=== PATIENT | female | born 1950 | race Caucasian/White ===

== ENCOUNTER 2018-07-23 11:48 | Emergency (ER) | payer MEDICARE, OTHER ==
[2018-07-23 12:51] LABS: Urine Appearance Clear; Urine Bacteria Absent (Absent); Urine Bilirubin Negative (Negative); Urine Blood 1+ (Negative); Urine Color Yellow; Urine Glucose Negative (Negative); Urine Ketones Trace (Negative); Urine Nitrite Negative (Negative); Urine Protein Negative (Negative); Urine Red Blood Cell Trace(0-2/hpf) (Absent); Urine Squamous Epithelial Cell Present (Absent); Urine Urobilinogen Negative (Negative); Urine White Blood Cell Trace(0-5/hpf) (Absent)
--- NOTE | 2018-07-23 13:57 | ED ---
Back Pain - HPI Summary HPI Summary: A 67 y/o F presents to ED with c/o constant, pin point, lower back pain onset yesterday AM and worsening. The pain is described as an ache and rated 8 out of 10 at bedside. She has not had this sort of pain before. Alleviating factors: heat mildly relieves the pain. Associated sx: nausea / vomiting. No changes in urinary or bowel sx. She ate breakfast yesterday and was at baseline. She had lunch yesterday, but vomited shortly thereafter. PMHx: diverticulitis. - History of Current Complaint Chief Complaint: EDFlankPain Stated Complaint: BACK IMAGING PER PT Time Seen by Provider: 07/23/18 13:49 Hx Obtained From: Patient Onset/Duration: Gradual Onset, Lasting Days - yesterday, Still Present Onset/Duration: Started Days Ago, Atraumatic, Still Present Timing: Constant Back Pain Location: Is Discrete @ - back Severity Currently: Severe Pain Intensity: 8 - at bedside Pain Scale Used: 0-10 Numeric Character: Aching Alleviating Symptom(s): Heat Associated Signs And Symptoms: Positive: Other - pos: n/v. Negative: Bladder Incontinence, Bowel Incontinence - Allergies/Home Medications Allergies/Adverse Reactions: Allergies Allergy/AdvReac Type Severity Reaction Status Date / Time No Known Allergies Allergy Verified 07/23/18 12:04 Home Medications: Home Medications Aspirin [Aspirin EC] 81 mg PO DAILY 07/23/18 [History Confirmed 07/23/18] Lisinopril [Lisinopril 2.5 MG-] 2.5 mg PO DAILY 07/23/18 [History Confirmed 06/11] Metformin HCl 500 mg PO BID 07/23/18 [History Confirmed 07/23/18] Probiotic Acidophilus 1 tab PO DAILY 07/23/18 [History Confirmed 07/23/18] PMH/Surg Hx/FS Hx/Imm Hx Previously Healthy: Yes GI History: Reports: Hx Diverticulosis History: Denies: Hx Kidney Stones Infectious Disease History: No Infectious Disease History: Denies: Traveled Outside the [place] in Last 30 Days - Social History Occupation: Unemployed - OTHER Lives: With Family Review of Systems Positive: Vomiting, Nausea. Negative: Other - neg: bowel changes Negative: dysuria, hematuria, incontinence Musculoskeletal: Other - pos: back pain All Other Systems Reviewed And Are Negative: Yes Physical Exam - Summary Physical Exam Summary: Appearance: The patient is well-nourished in no acute distress and in no acute pain. Skin: The skin is warm and dry and skin color reflects adequate perfusion. HEENT: The head is normocephalic and atraumatic. The pupils are equal and reactive. The conjunctivae are clear and without drainage. Nares are patent and without drainage. Mouth reveals moist mucous membranes and the throat is without erythema and exudate. The external ears are intact. The ear canals are patent and without drainage. The tympanic membranes are intact. Neck: the neck is supple with full range of motion and non-tender. There are no carotid bruits. There is no neck vein distension. Respiratory: Chest is non-tender. Lungs are clear to auscultation and breath sounds are symmetrical and equal. Cardiovascular: Heart is regular rate and rhythm. There is no murmur or rub auscultated. There is no peripheral edema and pulses are symmetrical and equal. Abdomen: The abdomen is soft and non-tender. There are normal bowel sounds heard in all four quadrants and there is no organomegaly palpated. Musculoskeletal: There is no back tenderness noted. Extremities are non-tender with full range of motion. There is good capillary refill. There is no peripheral edema or calf tenderness elicited. Neurological: Patient is alert and oriented to person, place and time. The patient has symmetrical motor strength in all four extremities. Cranial nerves are grossly intact. Deep tendon reflexes are symmetrical and equal in all four extremities. Psychiatric: The patient has an appropriate affect and does not exhibit any anxiety or depression. Triage Information Reviewed: Yes Vital Signs On Initial Exam: Initial Vitals Temp Pulse Resp BP Pulse Ox 99.4 F 73 20 147/74 99 07/23/18 12:03 07/23/18 12:03 07/23/18 12:03 07/23/18 12:03 07/23/18 12:03 Vital Signs Reviewed: Yes Diagnostics - Vital Signs Vital Signs Temp Pulse Resp BP Pulse Ox 07/23/18 12:03 99.4 F 73 20 147/74 99 - Laboratory Lab Results: Lab Results 07/23/18 Range/Units 12:10 Urine Color Yellow Urine Appearance Clear Urine pH 6.0 (5-9) Ur Specific [place] 1.020 (1.010-1.030) Urine Protein Negative (Negative) Urine Ketones Trace A (Negative) Urine Blood 1+ A (Negative) Urine Nitrate Negative (Negative) Urine Bilirubin Negative (Negative) Urine Urobilinogen Negative (Negative) Ur Leukocyte Esterase Trace A (Negative) Urine WBC (Auto) Trace(0-5/hpf) (Absent) Urine RBC (Auto) Trace(0-2/hpf) (Absent) Ur Squamous Epith Cells Present A (Absent) Urine Bacteria Absent (Absent) Urine Glucose Negative (Negative) Result Diagrams: 07/23/18 14:11 07/23/18 14:11 Lab Statement: Any lab studies that have been ordered have been reviewed, and results considered in the medical decision making process. - CT A/P CT Interpretation Completed By: Radiologist Summary of CT Findings: IMPRESSION: Hepatic steatosis. No evidence of cholelithiasis. No obstructive uropathy is noted. ED provider has reviewed this report. Re-Evaluation - Re-Evaluation 1 Re-Evaluation Time: 16:13 Change: Unchanged Comment: Discussing results and plan for DC. Pt is agreeable to DC. Back Pain Course/Dx - Course Course Of Treatment: Ms. Aragon presented complaining of right low back pain which started yesterday. She is essentially unable to reproduce pain. Her gave her a massage yesterday of the area and said the muscles were tense and it helped some but he was unable to relieve it. She denies any change in bowels or bladder. She was nauseated a little bit with it yesterday and vomited once. She was nontoxic in appearance with stable vitals and her exam was unremarkable. I was unable to reproduce the pain with palpation of her back. She had no CVA tenderness or abdominal tenderness. CBC, CMP and urinalysis were all unremarkable as was CT scan of her abdomen and pelvis. I'm not sure the etiology for the pain is but I suspect it is from her back and musculoskeletal. I recommended conservative treatment for couple of days and follow-up if she is not improving or return if she is worsening or develops new symptoms. - Diagnoses Provider Diagnoses: Right flank pain Discharge - Sign-Out/Discharge Documenting (check all that apply): Patient Departure - DC Patient Received Moderate/Deep Sedation with Procedure: No - Discharge Plan Condition: Stable Disposition: HOME Patient Education Materials: Flank Pain (ED) Referrals: Celio GRIFFIN,Aaron Lopez [Primary Care Provider] - 3 Days Additional Instructions: Try Ibuprofen as needed for pain. Please return to the ED if you experience new or worsening symptoms. Follow up with your primary care provider in 2-3 days. - Billing Disposition and Condition Condition: STABLE Disposition: Home - Attestation Statements Document Initiated by Bridgett: Yes Documenting Scribe: Natalie Do Provider For Whom Bridgett is Documenting (Include Credential): Dr. Ck Araujo MD Scribe Attestation: INatalie, scribed for Dr. Ck Araujo MD on 07/23/18 at 1717. Scribe Documentation Reviewed: Yes Provider Attestation: The documentation as recorded by the Natalie viramontes accurately reflects the service I personally performed and the decisions made by me, Dr. Ck Araujo MD Status of Scribe Document: Viewed
[2018-07-23 14:33] LABS: ABS Basophils 0 10^3/ul (0-0.2); ABS Eosinophils 0.1 10^3/ul (0-0.6); ABS Lymphocytes 1.9 10^3/ul (1.0-4.8); ABS Monocytes 0.5 10^3/ul (0-0.8); ABS Neutrophils 3.3 10^3/ul (1.5-7.7); ABS Nucleated RBC 0 10^3/ul; Eosinophil % 1.1 %; Hematocrit 42 % (33-41); Hemoglobin 14.1 g/dL (12.0-16.0); Lymphocyte % 32.8 %; Mean Corpuscular HGB Conc 34 g/dL (31-36); Mean Corpuscular Hemoglobin 30 pg (27-31); Mean Corpuscular Volume 88 fL (80-97); Nucleated Red Blood Cells % 0.1; Platelet Count 249 10^3/uL (150-450); Red Blood Count 4.76 10^6 /uL (3.70-4.87); Red Cell Distribution Width 14 % (10.5-15); White Blood Count 5.8 10^3/uL (3.5-10.8)
[2018-07-23 15:04] LABS: Albumin 4.4 g/dL (3.2-5.2); Albumin/Globulin Ratio 1.7 (1-3); BUN/Creatinine Ratio 20.2 (8-20); C Reactive Protein 4.59 mg/L (<8.01); Calcium 9.7 mg/dL (8.6-10.3); EGFR African American 76.3 (>60); EGFR Non-African American 63.1 (>60); Globulin 2.6 g/dL (2-4); Potassium 4.2 mmol/L (3.5-5.0); Total Bilirubin 0.5 mg/dL (0.2-1.0)
[2018-07-23 16:36] VITALS: BP 121/72
== END 2018-07-23 16:35 | disposition home or self-care (01) ==
LOC: ED 11:48
DX: R10.9 Unspecified abdominal pain (principal); Z79.82 Long term (current) use of aspirin; K76.0 Fatty (change of) liver, not elsewhere classified
CPT/HCPCS: 36415; 74176; 80053; 81003; 81015; 83605; 85025; 86140; 87086; 99282